=== PATIENT | male | born 2000 | race American Indian/Alaskan Native ===

== ENCOUNTER 2022-04-11 22:23 | Emergency (ER) | payer SELFPAY | END 2022-04-11 23:43 | disposition home or self-care (01) | LOC: DL.ED 22:23 | DX: M25.522 Pain in left elbow (principal); S00.81XA Abrasion of other part of head, initial encounter; W22.09XA Striking against other stationary object, initial encounter | CPT/HCPCS: 73080-LT; 99283 ==

== ENCOUNTER 2024-02-03 15:03 | Emergency (ER) | payer SELFPAY | END 2024-02-03 16:02 | disposition home or self-care (01) | LOC: DL.ED 15:03 | DX: S06.0X0A Concussion without loss of consciousness, initial encounter (principal); W22.8XXA Striking against or struck by other objects, initial encounter; Y99.0 Civilian activity done for income or pay | CPT/HCPCS: 70450; 99284 ==

== ENCOUNTER 2024-08-16 17:34 | Emergency (ER) | payer OTHER ==
[2024-08-16 18:16] LABS: BASOPHILS PERCENT AUTO 0.5 % (0.0-1.0); EOSINOPHILS PERCENT AUTO 2.1 % (1.0-3.0); HEMOGLOBIN 16.2 g/dL (14.0-18.0); LYMPHOCYTES PERCENT AUTO 24.5 % (20.5-50.1); MEAN CORPUSCULAR HEMOGLOBIN 30.4 pg (27.0-34.0); MEAN CORPUSCULAR HGB CONC 35.2 g/dL (33.0-35.0); MEAN CORPUSCULAR VOLUME 86.3 fL (80-100); MONOCYTES PERCENT AUTO 5.9 % (2-8); PLATELET COUNT,PLT 243 10^3/uL (150-450); RED BLOOD CELL COUNT 5.33 10^6/uL (4.6-6.2); WHITE BLOOD CELL COUNT,WBC 8.7 10^3/uL (5.0-10.0)
[2024-08-16] MEDS: Iopamidol 755 Mg/ML 100 ML Bottle IVPUSH ONE (18:20)
[2024-08-16 18:36] LABS: INR 0.9 (0.9-1.2); PROTHROMBIN TIME 9.9 SEC (9.0-12.0); PTT,PARTIAL THROMBOPLSTIN TIME 27.3 SEC (22.0-34.0)
[2024-08-16 18:37] LABS: A/G RATIO 1.4; ALANINE AMINOTRANSFERASE,ALT 31 U/L (16-63); ALBUMIN 4.4 g/dL (3.4-5.0); ALKALINE PHOSPHATASE 77 U/L (46-116); ANION GAP 14.6 mEq/L (7-13); ASPARTATE AMNIOTRANSFERASE,AST 13 U/L (15-37); BILIRUBIN TOTAL 0.6 mg/dL (0.2-1.0); BLOOD UREA NITROGEN,BUN 17 mg/dL (7-18); BUN/CREATININE RATIO 17.7 (No establ ref range); CALCIUM 9.4 mg/dL (8.5-10.1); CARBON DIOXIDE,CO2 27 mmol/L (21-32); CHLORIDE,CL 102 mmol/L (98-107); CREATININE 0.96 mg/dL (0.70-1.30); EST CRCL DRUG DOSING (CG) 108.92 mL/min; GLUCOSE RANDOM 154 mg/dL (70-99); MAGNESIUM 2.1 mg/dL (1.8-2.4); POTASSIUM,K 3.6 mmol/L (3.5-5.1); PROTEIN TOTAL,TP 7.5 g/dL (6.4-8.2); SODIUM,NA 140 mmol/L (136-145)
[2024-08-16 18:40] LABS: ESTIMATED GFR 115 mL/min (>=60); ETHANOL BLOOD MEDICAL < 3 mg/dL (0)
[2024-08-16 21:14] LABS: CHOLESTEROL HDL 40 mg/dL (40-59); CHOLESTEROL LDL CALCULATED 130 mg/dL (0-100); CHOLESTEROL TOTAL 205 mg/dL (0-199); TRIGLYCERIDES 175 mg/dL (0-149)
== END 2024-08-16 21:35 ==
LOC: DL.ED 17:34
DX: H53.9 Unspecified visual disturbance (principal)
CPT/HCPCS: 36415; 70450; 70496; 70498; 80053; 80061; 80307; 83735; 85025; 85610; 85730; 86850; 86900; 86901; 99282; 99285; Q9967